=== PATIENT | female | born 1955 | race African-American/Black ===

== ENCOUNTER 2020-10-20 10:32 | Inpatient (IN) | payer OTHER ==
[2020-10-14 14:32] VITALS: BMI 45.7
[2020-10-20] MEDS ORDERED: CEFAZOLIN 3 GM in DEXTROSE 5%-WATER - 100 ML IVPB ONE (11:11)
[2020-10-20] MEDS ORDERED: SODIUM CHLORIDE 0.9% P/F 10 ML VIAL IJ ONE (15:46)
[2020-10-20] MEDS ORDERED: BUPIVACAINE HCL 50 ML ONE ×2 (15:46→16:24)
[2020-10-20] MEDS ORDERED: MIDAZOLAM HCL 2 MG/2 ML SINGLE DOSE VIAL ONE ×3 (15:46→16:55)
[2020-10-20] MEDS ORDERED: BUPIVACAINE LIPOSOME/PF (EXPAREL) 266 MG/20 ML VIAL ONE (15:46)
[2020-10-20] MEDS ORDERED: fentaNYL CITRATE 250 MCG/5 ML VIAL ONE (16:26)
[2020-10-20] MEDS ORDERED: PROPOFOL 20 ML ONE ×3 (16:38→16:47)
[2020-10-20] MEDS ORDERED: ONDANSETRON 4 MG/2 ML VIAL ONE (16:39)
[2020-10-20] MEDS ORDERED: KETOROLAC TROMETHAMINE 30 MG/1 ML VIAL ONE (16:39)
[2020-10-20] MEDS ORDERED: ceFAZolin SODIUM 1 GM VIAL ONE (16:39)
[2020-10-20] MEDS ORDERED: TRANEXAMIC ACID 1000 MG/10 ML VIAL ONE (16:40)
[2020-10-20] MEDS ORDERED: VANCOMYCIN 1,000 MG VIAL (RESTRICTED TO ID ONLY) ONE (16:52)
[2020-10-20] MEDS ORDERED: ONDANSETRON 4 MG/2 ML VIAL IVPUSH PRN ×2 (18:56→19:34)
[2020-10-20] MEDS ORDERED: MAGNESIUM HYDROX 2400MG/30ML ORAL SUSPENSION 30 ML CUP PO PRN (18:56)
[2020-10-20] MEDS ORDERED: MAG HYDROX/AL HYDROX/SIMETH 30 ML UNIT-DOSE CUP PO PRN (18:56)
[2020-10-20] MEDS ORDERED: LACTATED RINGERS SOLUTION 1,000 ML IV SCH (19:00)
[2020-10-20] MEDS ORDERED: PROMETHAZINE HCL 25 MG/1 ML VIAL IVPUSH PRN (19:34)
[2020-10-20] MEDS ORDERED: ACETAMINOPHEN 325 MG TABLET (FP) ONE (19:45)
[2020-10-20] MEDS: ACETAMINOPHEN 325 MG TABLET (FP) PO SCH (19:47)
[2020-10-20] MEDS ORDERED: ASPIRIN 81 MG CHEWABLE TABLETS ONE (21:09)
[2020-10-20] MEDS: SENNOSIDES/DOCUSATE COMBO (SENNA PLUS) TABLET (UD) PO SCH (21:26)
[2020-10-20] MEDS: CELECOXIB 200 MG CAPSULE PO SCH (21:26)
[2020-10-20] MEDS: ASPIRIN COATED 81 MG TABLET.EC PO SCH (21:30)
[2020-10-20] MEDS: oxyCODONE HCL 5 MG TABLET PO PRN (22:23)
[2020-10-21] MEDS: oxyCODONE HCL 5 MG TABLET PO PRN ×5 (01:21→17:58)
[2020-10-21] MEDS: ACETAMINOPHEN 325 MG TABLET (FP) PO SCH ×4 (01:23→19:56)
[2020-10-21] MEDS: CEFAZOLIN 2 GM/D5W 2 GM/50 ML ML IVPB SCH ×3 (01:29→12:48)
[2020-10-21 07:38] LABS: HEMATOCRIT 40.7 % (32.4-45.2); HEMOGLOBIN 13.5 GM/dl (10.7-15.3); MCH 28.6 pg (25.7-33.7); MCHC 33.2 g/dl (32.0-36.0); MEAN CELL VOLUME 86.2 fl (80-96); MEAN PLT VOLUME 7.6 fl (7.5-11.1); PLATELET COUNT 293 K/MM3 (134-434); RBC 4.72 M/mm3 (3.60-5.2); WHITE BLOOD COUNT 12.5 K/mm3 (4.0-10.8)
[2020-10-21 07:54] LABS: CALCIUM 8.6 mg/dl (8.5-10)
[2020-10-21] MEDS: HYDROCHLOROTHIAZIDE 25 MG TABLET (FP) PO SCH (09:29)
[2020-10-21] MEDS: amLODIPine BESYLATE 5 MG TABLET (FP) PO SCH (09:29)
[2020-10-21] MEDS: PANTOPRAZOLE 40 MG TABLET PO SCH (09:29)
[2020-10-21] MEDS: CELECOXIB 200 MG CAPSULE PO SCH ×2 (09:29→21:44)
[2020-10-21] MEDS: MONTELUKAST NA 10 MG TABLET PO SCH (09:29)
[2020-10-21] MEDS: ASPIRIN COATED 81 MG TABLET.EC PO SCH ×2 (09:29→21:44)
[2020-10-21] MEDS: SENNOSIDES/DOCUSATE COMBO (SENNA PLUS) TABLET (UD) PO SCH ×2 (09:30→21:44)
[2020-10-22] MEDS: oxyCODONE HCL 5 MG TABLET PO PRN ×4 (00:46→11:03)
[2020-10-22] MEDS: ACETAMINOPHEN 325 MG TABLET (FP) PO SCH ×5 (00:47→21:34)
[2020-10-22 07:28] LABS: HEMATOCRIT 37.4 % (32.4-45.2); HEMOGLOBIN 12.1 GM/dl (10.7-15.3); MCH 28.6 pg (25.7-33.7); MCHC 32.5 g/dl (32.0-36.0); MEAN CELL VOLUME 88.1 fl (80-96); PLATELET COUNT 247 K/MM3 (134-434); RBC 4.24 M/mm3 (3.60-5.2)
[2020-10-22] MEDS: PANTOPRAZOLE 40 MG TABLET PO SCH (10:50)
[2020-10-22] MEDS: HYDROCHLOROTHIAZIDE 25 MG TABLET (FP) PO SCH (10:50)
[2020-10-22] MEDS: ASPIRIN COATED 81 MG TABLET.EC PO SCH ×2 (10:50→21:33)
[2020-10-22] MEDS: CELECOXIB 200 MG CAPSULE PO SCH ×2 (10:50→21:33)
[2020-10-22] MEDS: amLODIPine BESYLATE 5 MG TABLET (FP) PO SCH (10:50)
[2020-10-22] MEDS: MONTELUKAST NA 10 MG TABLET PO SCH (10:50)
[2020-10-22] MEDS: SENNOSIDES/DOCUSATE COMBO (SENNA PLUS) TABLET (UD) PO SCH ×2 (10:51→21:33)
[2020-10-23] MEDS: oxyCODONE HCL 5 MG TABLET PO PRN ×4 (02:59→22:23)
[2020-10-23] MEDS: ACETAMINOPHEN 325 MG TABLET (FP) PO SCH ×3 (02:59→14:00)
[2020-10-23] MEDS: CELECOXIB 200 MG CAPSULE PO SCH ×2 (10:10→21:06)
[2020-10-23] MEDS: MONTELUKAST NA 10 MG TABLET PO SCH (10:10)
[2020-10-23] MEDS: ASPIRIN COATED 81 MG TABLET.EC PO SCH ×2 (10:10→21:06)
[2020-10-23] MEDS: amLODIPine BESYLATE 5 MG TABLET (FP) PO SCH (10:10)
[2020-10-23] MEDS: HYDROCHLOROTHIAZIDE 25 MG TABLET (FP) PO SCH (10:10)
[2020-10-23] MEDS: PANTOPRAZOLE 40 MG TABLET PO SCH (10:11)
[2020-10-23] MEDS: SENNOSIDES/DOCUSATE COMBO (SENNA PLUS) TABLET (UD) PO SCH ×2 (10:11→21:06)
[2020-10-24] MEDS: oxyCODONE HCL 5 MG TABLET PO PRN ×2 (02:27→11:13)
[2020-10-24] MEDS: SENNOSIDES/DOCUSATE COMBO (SENNA PLUS) TABLET (UD) PO SCH (11:12)
[2020-10-24] MEDS: CELECOXIB 200 MG CAPSULE PO SCH (11:13)
[2020-10-24] MEDS: ASPIRIN COATED 81 MG TABLET.EC PO SCH (11:13)
[2020-10-24] MEDS: amLODIPine BESYLATE 5 MG TABLET (FP) PO SCH (11:13)
[2020-10-24] MEDS: HYDROCHLOROTHIAZIDE 25 MG TABLET (FP) PO SCH (11:13)
[2020-10-24] MEDS: MONTELUKAST NA 10 MG TABLET PO SCH (11:13)
[2020-10-24] MEDS: PANTOPRAZOLE 40 MG TABLET PO SCH (11:18)
[2020-10-24 15:16] VITALS: BP 115/73; PULSE 72; TEMP 98
== END 2020-10-24 15:16 | disposition home or self-care (01) | DRG 302 ==
LOC: FM/S 10:32
PROVIDERS: ADMIT Orthopaedic Surgery Orthopaedic Surgery of the Spine; ATTEND Nurse Practitioner Acute Care
PROC: 0SRC0J9 Replacement of Right Knee Joint with Synthetic Substitute, Cemented, Open Approach (ICD-10-PCS; principal; 2020-10-20 16:59)
DX: M17.11 Unilateral primary osteoarthritis, right knee (principal); I10 Essential (primary) hypertension; J45.909 Unspecified asthma, uncomplicated; Z88.0 Allergy status to penicillin
CPT/HCPCS: 36415; 73560-TC-RT-FY; 80048; 85027; 88305-TC; 88311-TC; 94760; 97010-GP; 97116-GP; 97163-GP

== ENCOUNTER 2021-11-30 16:16 | Day surgery (SDC) | payer OTHER ==
[2021-11-29 10:34] VITALS: BMI 41.1
[~2021-11-30 16:16] MED LIST: BUPIVACAINE HCL 50 ML ONE; BUPIVACAINE HCL/PF 0.5% (5MG/ML) 10 ML VIAL ONE; BUPIVACAINE LIPOSOME/PF (EXPAREL) 266 MG/20 ML VIAL ONE; DEXAMETHASONE SOD PHOSPHATE 4 MG/1 ML VIAL ONE; KETOROLAC TROMETHAMINE 30 MG/1 ML VIAL ONE; LACTATED RINGERS SOLUTION 1,000 ML IV SCH; MAG HYDROX/AL HYDROX/SIMETH 30 ML UNIT-DOSE CUP PO PRN; MAGNESIUM HYDROX 2400MG/30ML ORAL SUSPENSION 30 ML CUP PO PRN; MIDAZOLAM HCL 2 MG/2 ML SINGLE DOSE VIAL ONE; MONTELUKAST NA 10 MG TABLET PO PRN; ONDANSETRON 4 MG/2 ML VIAL IVPUSH PRN; PROPOFOL 20 ML ONE; TRANEXAMIC ACID 1000 MG/10 ML VIAL ONE; VANCOMYCIN 1,000 MG VIAL (RESTRICTED TO ID ONLY) ONE; ceFAZolin SODIUM 1 GM VIAL ONE
[2021-11-30] MEDS ORDERED: ONDANSETRON 4 MG/2 ML VIAL IVPUSH PRN (16:29)
[2021-11-30] MEDS ORDERED: ACETAMINOPHEN 1000 MG/100 ML BAG IVPB ONE (16:29)
[2021-11-30] MEDS ORDERED: ACETAMINOPHEN INJECTION 100 ML IVPB ONE (16:36)
[2021-11-30] MEDS: KETOROLAC TROMETHAMINE 30 MG/1 ML VIAL IVPUSH SCH ×2 (18:30→21:57)
[2021-11-30] MEDS ORDERED: ceFAZolin SODIUM 1 GM VIAL ONE (20:50)
[2021-11-30] MEDS ORDERED: DEXTROSE 5%-WATER - 50 ML IVPB ONE (20:50)
[2021-11-30] MEDS ORDERED: CEFAZOLIN 2 GM in DEXTROSE 5%-WATER - 50 ML IVPB SCH (21:00)
[2021-11-30] MEDS: oxyCODONE HCL 5 MG TABLET PO PRN (21:10)
[2021-11-30] MEDS: oxyCODONE HCL 10 MG SUSTAINED ACTING TABLET PO SCH (21:11)
[2021-11-30] MEDS: SENNOSIDES/DOCUSATE COMBO (SENNA PLUS) TABLET (UD) PO SCH (21:11)
[2021-11-30] MEDS: CEFAZOLIN 2 GM in DEXTROSE 5%-WATER - 50 ML IVPB SCH (21:12)
[2021-11-30] MEDS: ASPIRIN COATED 81 MG TABLET.EC PO SCH (21:57)
[2021-11-30] MEDS ORDERED: ASPIRIN 325 MG TABLET PO SCH (22:00)
[2021-11-30] MEDS ORDERED: SENNOSIDES/DOCUSATE COMBO (SENNA PLUS) TABLET (UD) PO SCH (22:00)
[2021-12-01] MEDS: oxyCODONE HCL 5 MG TABLET PO PRN ×5 (00:12→17:47)
[2021-12-01] MEDS: ACETAMINOPHEN 500 MG TABLET (FP) PO SCH ×5 (00:12→22:11)
[2021-12-01] MEDS: CEFAZOLIN 2 GM in DEXTROSE 5%-WATER - 50 ML IVPB SCH ×2 (03:39→08:39)
[2021-12-01] MEDS ORDERED: ceFAZolin SODIUM 1 GM VIAL ONE ×2 (04:21→08:26)
[2021-12-01] MEDS ORDERED: DEXTROSE 5%-WATER - 50 ML IVPB ONE ×2 (04:21→08:26)
[2021-12-01] MEDS: LACTATED RINGERS SOLUTION 1,000 ML IV SCH ×2 (06:02→17:49)
[2021-12-01 08:19] LABS: HEMATOCRIT 37.5 % (32.4-45.2); HEMOGLOBIN 13.2 G/dL (10.7-15.3); MCH 29.6 pg (25.7-33.7); MCHC 35.1 g/dl (32.0-36.0); MEAN CELL VOLUME 84.5 fl (80-96); MEAN PLT VOLUME 7.7 fl (7.5-11.1); PLATELET COUNT 268.3 10^3/uL (134-434); RBC 4.44 10^6/uL (3.60-5.2); RDW 14.7 % (11.6-15.6); WHITE BLOOD COUNT 13.6 10^3/uL (4.0-10.8)
[2021-12-01 08:26] LABS: CALCIUM 8.3 mg/dl (8.5-10); CREATININE 0.9 mg/dl (0.55-1.3)
[2021-12-01] MEDS: PANTOPRAZOLE 40 MG TABLET PO SCH (09:14)
[2021-12-01] MEDS: ASPIRIN COATED 81 MG TABLET.EC PO SCH ×2 (09:15→22:10)
[2021-12-01] MEDS: oxyCODONE HCL 10 MG SUSTAINED ACTING TABLET PO SCH ×2 (09:15→22:10)
[2021-12-01] MEDS: SENNOSIDES/DOCUSATE COMBO (SENNA PLUS) TABLET (UD) PO SCH ×2 (09:15→22:12)
[2021-12-01] MEDS: CELECOXIB 200 MG CAPSULE PO SCH (09:15)
[2021-12-01] MEDS: amLODIPine BESYLATE 5 MG TABLET (FP) PO SCH (09:15)
[2021-12-01] MEDS: HYDROCHLOROTHIAZIDE 25 MG TABLET (FP) PO SCH (09:20)
[2021-12-01] MEDS ORDERED: amLODIPine BESYLATE 5 MG TABLET (FP) PO SCH (10:00)
[2021-12-01] MEDS ORDERED: HYDROCHLOROTHIAZIDE 25 MG TABLET (FP) PO SCH (10:00)
[2021-12-01] MEDS ORDERED: CELECOXIB 200 MG CAPSULE PO SCH (10:00)
[2021-12-01] MEDS ORDERED: PANTOPRAZOLE 40 MG TABLET PO SCH (10:00)
[2021-12-02] MEDS: oxyCODONE HCL 5 MG TABLET PO PRN ×3 (03:07→15:39)
[2021-12-02] MEDS: ACETAMINOPHEN 500 MG TABLET (FP) PO SCH ×2 (06:30→10:51)
[2021-12-02 09:26] LABS: HEMOGLOBIN 12.2 GM/dL (10.7-15.3); MCH 28.1 pg (25.7-33.7); MCHC 33.1 g/dl (32.0-36.0); MEAN CELL VOLUME 85.1 fl (80-96); MEAN PLT VOLUME 7.8 fl (7.5-11.1); PLATELET COUNT 258 10^3/uL (134-434); RBC 4.35 M/mm3 (3.60-5.2); RDW 14.6 % (11.6-15.6); WHITE BLOOD COUNT 8.9 K/mm3 (4.0-10.0)
[2021-12-02] MEDS: amLODIPine BESYLATE 5 MG TABLET (FP) PO SCH (09:31)
[2021-12-02] MEDS: ASPIRIN COATED 81 MG TABLET.EC PO SCH (09:31)
[2021-12-02] MEDS: PANTOPRAZOLE 40 MG TABLET PO SCH (09:31)
[2021-12-02] MEDS: oxyCODONE HCL 10 MG SUSTAINED ACTING TABLET PO SCH (09:31)
[2021-12-02] MEDS: SENNOSIDES/DOCUSATE COMBO (SENNA PLUS) TABLET (UD) PO SCH (09:31)
[2021-12-02] MEDS: HYDROCHLOROTHIAZIDE 25 MG TABLET (FP) PO SCH (09:31)
[2021-12-02] MEDS: CELECOXIB 200 MG CAPSULE PO SCH (09:31)
[2021-12-02 13:54] VITALS: BP 131/77; PULSE 84; RESP 20; TEMP 98.4
== END 2021-12-02 16:20 | disposition home health service (06) ==
LOC: FASUSAT 16:16 → FM/S 17:54 → FASUSAT 12-02 04:20
PROVIDERS: ATTEND Orthopaedic Surgery Orthopaedic Surgery of the Spine
PROC: 0SRD0J9 Replacement of Left Knee Joint with Synthetic Substitute, Cemented, Open Approach (ICD-10-PCS; principal; 2021-11-30 14:00)
DX: M17.12 Unilateral primary osteoarthritis, left knee (principal)
CPT/HCPCS: 27447; C1776; 36415; 73560-TC-LT-FY; 80048; 85025; 85027; 88305-TC; 88311-TC; 94760; 97010-GP; 97116-GP; 97162-GP

== ENCOUNTER 2021-12-27 17:32 | Inpatient (IN) | payer OTHER ==
[2021-12-27] MEDS ORDERED: oxyCODONE HCL 5 MG TABLET PO ONE (17:57)
[2021-12-27] MEDS ORDERED: ACETAMINOPHEN 1000 MG/100 ML BAG IVPB ONE (17:57)
[2021-12-27] MEDS ORDERED: VANCOMYCIN 2,000 MG in DEXTROSE 5%-WATER - 500 ML IVPB ONE (18:00)
[2021-12-27] MEDS ORDERED: SODIUM CHLORIDE 0.9% 500 ML INFUS.BAG IV ONE (18:01)
[2021-12-27] MEDS ORDERED: VANCOMYCIN 1,000 MG VIAL (RESTRICTED TO ID ONLY) ONE (18:07)
[2021-12-27] MEDS ORDERED: ACETAMINOPHEN INJECTION 100 ML IVPB ONE (18:08)
[2021-12-27] MEDS ORDERED: oxyCODONE HCL 5 MG TABLET ONE (18:24)
[2021-12-27 18:26] LABS: HEMATOCRIT 39.2 % (32.4-45.2); HEMOGLOBIN 13.6 G/dL (10.7-15.3); MCH 29.5 pg (25.7-33.7); MCHC 34.6 g/dl (32.0-36.0); MEAN CELL VOLUME 85.3 fl (80-96); MEAN PLT VOLUME 6.8 fl (7.5-11.1); PLATELET COUNT 344.1 10^3/uL (134-434); RDW 15.6 % (11.6-15.6); WHITE BLOOD COUNT 7.3 10^3/uL (4.0-10.8)
[2021-12-27 18:36] LABS: INR 1.09 (0.83-1.09); PROTHROMBIN TIME (PATIENT) 12.5 SEC (9.7-13.0)
[2021-12-27 18:38] LABS: ACTIVATED PTT 31.8 SECONDS (25.2-36.5)
[2021-12-27 18:41] LABS: PLATELET ESTIMATE ADEQUATE
[2021-12-27 18:42] LABS: ALBUMIN 3.8 g/dl (3.4-5.0); BILIRUBIN,TOTAL 0.8 mg/dl (0.2-1); CALCIUM 9.2 mg/dl (8.5-10); CREATININE 0.9 mg/dl (0.55-1.3); TOT PROT 7.9 g/dl (6.4-8.2)
[2021-12-27] MEDS ORDERED: POTASSIUM CHLORIDE TABS 20 MEQ TABLET.ER (FP) PO ONE ×2 (18:46→18:48)
[2021-12-27 23:13] VITALS: BMI 43.9
[2021-12-27] MEDS ORDERED: morphine SULFATE 4 MG/ML VIAL IVPUSH PRN (23:45)
[2021-12-27] MEDS ORDERED: DEXTROSE 5%-0.45% SALINE 1,000 ML IV SCH (23:45)
[2021-12-28] MEDS: ACETAMINOPHEN 1000 MG/100 ML BAG IVPB PRN ×3 (00:20→22:50)
[2021-12-28 08:09] LABS: CALCIUM 8.5 mg/dl (8.5-10); CREATININE 0.6 mg/dl (0.55-1.3)
[2021-12-28 09:09] LABS: HEMATOCRIT 39.4 % (32.4-45.2); HEMOGLOBIN 13.2 GM/dL (10.7-15.3); MCH 28.4 pg (25.7-33.7); MCHC 33.4 g/dl (32.0-36.0); MEAN CELL VOLUME 85.1 fl (80-96); MEAN PLT VOLUME 7.1 fl (7.5-11.1); PLATELET COUNT 242 10^3/uL (134-434); RBC 4.64 M/mm3 (3.60-5.2); RDW 15.4 % (11.6-15.6); WHITE BLOOD COUNT 4.6 K/mm3 (4.0-10.0)
[2021-12-28] MEDS ORDERED: PROPOFOL 20 ML ONE (11:12)
[2021-12-28] MEDS ORDERED: SUCCINYLCHOLINE CHLORIDE 200 MG/10 ML SYRINGE ONE (11:12)
[2021-12-28] MEDS ORDERED: BUPIVACAINE HCL 50 ML ONE (11:13)
[2021-12-28] MEDS ORDERED: MIDAZOLAM HCL 2 MG/2 ML SINGLE DOSE VIAL ONE (11:39)
[2021-12-28] MEDS ORDERED: ONDANSETRON 4 MG/2 ML VIAL ONE (12:06)
[2021-12-28] MEDS ORDERED: DEXAMETHASONE SOD PHOSPHATE 4 MG/1 ML VIAL ONE (12:06)
[2021-12-28] MEDS ORDERED: KETOROLAC TROMETHAMINE 30 MG/1 ML VIAL ONE (12:06)
[2021-12-28] MEDS ORDERED: ceFAZolin SODIUM 1 GM VIAL ONE (13:29)
[2021-12-28] MEDS ORDERED: VANCOMYCIN/WATER 1250 MG 1,250 MG/250 ML BAG IVPB SCH ×2 (13:30→16:45)
[2021-12-28] MEDS ORDERED: GLYCOPYRROLATE 0.2 MG/1 ML VIAL ONE (13:34)
[2021-12-28] MEDS ORDERED: NEOSTIGMINE METHYLSULFATE 0.5 MG/1 ML - 10 ML MDV ONE (13:34)
[2021-12-28] MEDS ORDERED: MAG HYDROX/AL HYDROX/SIMETH 30 ML UNIT-DOSE CUP PO PRN (13:59)
[2021-12-28] MEDS ORDERED: ONDANSETRON 4 MG/2 ML VIAL IVPUSH PRN ×2 (13:59→14:02)
[2021-12-28] MEDS ORDERED: MAGNESIUM HYDROX 2400MG/30ML ORAL SUSPENSION 30 ML CUP PO PRN (13:59)
[2021-12-28] MEDS ORDERED: LACTATED RINGERS SOLUTION 1,000 ML IV SCH (14:00)
[2021-12-28] MEDS ORDERED: oxyCODONE HCL 5 MG TABLET PO PRN (14:02)
[2021-12-28] MEDS ORDERED: PROMETHAZINE HCL 25 MG/1 ML VIAL IVPUSH PRN (14:02)
[2021-12-28] MEDS ORDERED: FENTANYL CITRATE/PF 50 MCG/ML VIAL ONE ×2 (14:21→14:34)
[2021-12-28] MEDS ORDERED: ACETAMINOPHEN INJECTION 100 ML IVPB ONE (14:23)
[2021-12-28] MEDS: oxyCODONE HCL 5 MG TABLET PO PRN ×2 (16:03→20:07)
[2021-12-28] MEDS: CEFAZOLIN SODIUM 2 GM in DEXTROSE 5%-WATER 100 ML IVPB SCH (18:12)
[2021-12-28] MEDS: ASPIRIN COATED 81 MG TABLET.EC PO SCH (21:10)
[2021-12-28] MEDS: CELECOXIB 100 MG CAPSULE PO SCH (21:10)
[2021-12-28] MEDS: SENNOSIDES/DOCUSATE COMBO (SENNA PLUS) TABLET (UD) PO SCH (21:10)
[2021-12-28] MEDS ORDERED: VANCOMYCIN 1 GM in D5W (PRE-DOCKED) 1,000 MG/250 ML IVPB SCH (22:00)
[2021-12-28] MEDS ORDERED: ASPIRIN 325 MG TABLET PO SCH (22:00)
[2021-12-29] MEDS: VANCOMYCIN/WATER 1250 MG 1,250 MG/250 ML BAG IVPB SCH ×2 (00:28→13:46)
[2021-12-29] MEDS ORDERED: VANCOMYCIN 1 GM in D5W (PRE-DOCKED) 1,000 MG/250 ML IVPB SCH (01:00)
[2021-12-29] MEDS: CEFAZOLIN SODIUM 2 GM in DEXTROSE 5%-WATER 100 ML IVPB SCH ×2 (02:47→09:16)
[2021-12-29] MEDS: oxyCODONE HCL 5 MG TABLET PO PRN ×5 (03:11→22:13)
[2021-12-29 08:30] LABS: ALBUMIN 3.1 g/dl (3.4-5.0); BILIRUBIN,TOTAL 0.7 mg/dl (0.2-1); CALCIUM 8.4 mg/dl (8.5-10); CREATININE 0.6 mg/dl (0.55-1.3); TOT PROT 6.4 g/dl (6.4-8.2)
[2021-12-29] MEDS: PANTOPRAZOLE 40 MG TABLET PO SCH (09:16)
[2021-12-29] MEDS: CELECOXIB 100 MG CAPSULE PO SCH ×2 (09:16→21:29)
[2021-12-29] MEDS: HYDROCHLOROTHIAZIDE 25 MG TABLET (FP) PO SCH (09:16)
[2021-12-29] MEDS: SENNOSIDES/DOCUSATE COMBO (SENNA PLUS) TABLET (UD) PO SCH ×2 (09:16→21:30)
[2021-12-29] MEDS: ASPIRIN COATED 81 MG TABLET.EC PO SCH ×2 (09:16→21:28)
[2021-12-29] MEDS: amLODIPine BESYLATE 5 MG TABLET (FP) PO SCH (09:16)
[2021-12-29] MEDS ORDERED: amLODIPine BESYLATE 5 MG TABLET (FP) PO SCH (10:00)
[2021-12-29 11:07] LABS: BASO % 0.6 % (0-2.0); EOS % 0.1 % (0-4.5); HEMATOCRIT 32.9 % (32.4-45.2); HEMOGLOBIN 11.1 GM/dL (10.7-15.3); LYMPH % 24.6 % (8-40); MCH 28.3 pg (25.7-33.7); MCHC 33.6 g/dl (32.0-36.0); MEAN PLT VOLUME 7.2 fl (7.5-11.1); MONO % 8.5 % (3.8-10.2); NEUT % 66.2 % (42.8-82.8); PLATELET COUNT 281 10^3/uL (134-434); RBC 3.92 M/mm3 (3.60-5.2); RDW 15.5 % (11.6-15.6); WHITE BLOOD COUNT 8.4 K/mm3 (4.0-10.0)
[2021-12-29] MEDS: CEFTRIAXONE 2 GM in DEXTROSE 5%-WATER 100 ML IVPB SCH (17:07)
[2021-12-30] MEDS ORDERED: REFRIGERATED ANITBIOTICS ONE (00:44)
[2021-12-30] MEDS: VANCOMYCIN/WATER 1250 MG 1,250 MG/250 ML BAG IVPB SCH ×2 (00:52→13:33)
[2021-12-30] MEDS: oxyCODONE HCL 5 MG TABLET PO PRN ×4 (01:23→22:25)
[2021-12-30 08:12] LABS: BILIRUBIN,TOTAL 0.7 mg/dl (0.2-1); CALCIUM 8.1 mg/dl (8.5-10); CREATININE 0.5 mg/dl (0.55-1.3); TOT PROT 6.3 g/dl (6.4-8.2)
[2021-12-30] MEDS: CEFTRIAXONE 2 GM in DEXTROSE 5%-WATER 100 ML IVPB SCH (09:47)
[2021-12-30] MEDS: amLODIPine BESYLATE 5 MG TABLET (FP) PO SCH (09:48)
[2021-12-30] MEDS: PANTOPRAZOLE 40 MG TABLET PO SCH (09:48)
[2021-12-30] MEDS: HYDROCHLOROTHIAZIDE 25 MG TABLET (FP) PO SCH (09:48)
[2021-12-30] MEDS: SENNOSIDES/DOCUSATE COMBO (SENNA PLUS) TABLET (UD) PO SCH ×2 (09:48→21:57)
[2021-12-30] MEDS: ASPIRIN COATED 81 MG TABLET.EC PO SCH ×2 (09:48→21:58)
[2021-12-30] MEDS: CELECOXIB 100 MG CAPSULE PO SCH ×2 (10:40→21:58)
[2021-12-30 11:13] LABS: BASO % 0.7 % (0-2.0); EOS % 6.3 % (0-4.5); HEMATOCRIT 33.2 % (32.4-45.2); HEMOGLOBIN 11.2 GM/dL (10.7-15.3); LYMPH % 39.9 % (8-40); MCH 28.7 pg (25.7-33.7); MCHC 33.6 g/dl (32.0-36.0); MEAN CELL VOLUME 85.4 fl (80-96); MEAN PLT VOLUME 6.9 fl (7.5-11.1); MONO % 7.2 % (3.8-10.2); NEUT % 45.9 % (42.8-82.8); PLATELET COUNT 251 10^3/uL (134-434); RBC 3.89 M/mm3 (3.60-5.2); RDW 15.8 % (11.6-15.6); WHITE BLOOD COUNT 7.4 K/mm3 (4.0-10.0)
[2021-12-30] MEDS ORDERED: POTASSIUM CHLORIDE TABS 20 MEQ TABLET.ER (FP) PO ONE (15:08)
[2021-12-30] MEDS: CEFEPIME 2 GM in DEXTROSE 5%-WATER 100 ML IVPB SCH (17:25)
[2021-12-31] MEDS: CEFEPIME 2 GM in DEXTROSE 5%-WATER 100 ML IVPB SCH ×2 (01:00→09:42)
[2021-12-31] MEDS: VANCOMYCIN/WATER 1250 MG 1,250 MG/250 ML BAG IVPB SCH ×2 (01:33→12:51)
[2021-12-31] MEDS: oxyCODONE HCL 5 MG TABLET PO PRN ×3 (05:21→16:51)
[2021-12-31 09:04] LABS: BILIRUBIN,TOTAL 0.8 mg/dl (0.2-1); CALCIUM 8.4 mg/dl (8.5-10); CREATININE 0.6 mg/dl (0.55-1.3); TOT PROT 6.3 g/dl (6.4-8.2)
[2021-12-31] MEDS: CELECOXIB 100 MG CAPSULE PO SCH ×2 (09:41→21:43)
[2021-12-31] MEDS: amLODIPine BESYLATE 5 MG TABLET (FP) PO SCH (09:42)
[2021-12-31] MEDS: HYDROCHLOROTHIAZIDE 25 MG TABLET (FP) PO SCH (09:42)
[2021-12-31] MEDS: ASPIRIN COATED 81 MG TABLET.EC PO SCH ×2 (09:42→21:44)
[2021-12-31] MEDS: SENNOSIDES/DOCUSATE COMBO (SENNA PLUS) TABLET (UD) PO SCH ×2 (09:57→21:43)
[2021-12-31] MEDS: PANTOPRAZOLE 40 MG TABLET PO SCH (09:57)
[2021-12-31] MEDS ORDERED: POTASSIUM CHLORIDE TABS 20 MEQ TABLET.ER (FP) PO ONE (09:57)
[2021-12-31] MEDS ORDERED: MAGNESIUM SULF 50% (8.12 MEQ/2 ML-1 GM VIAL) IVPB ONE (11:55)
[2021-12-31 11:57] LABS: HEMATOCRIT 34.4 % (32.4-45.2); HEMOGLOBIN 11.4 GM/dL (10.7-15.3); MCH 28.5 pg (25.7-33.7); MEAN CELL VOLUME 86.2 fl (80-96); MEAN PLT VOLUME 7.1 fl (7.5-11.1); PLATELET COUNT 246 10^3/uL (134-434); RBC 3.99 M/mm3 (3.60-5.2); RDW 15.6 % (11.6-15.6); WHITE BLOOD COUNT 6.9 K/mm3 (4.0-10.0)
[2021-12-31 13:48] LABS: ANISOCYTOSIS 0; HELMET CELLS 0; HOWELL-JOLLY BODIES 0; MACROCYTOSIS 0; OVALOCYTE 0; ROULEAU 0; SICKELED CELLS 0; TARGET CELLS 0; TEAR DROP CELLS 0; TOXIC GRANULATION 0
[2021-12-31] MEDS ORDERED: CEFTRIAXONE 2 GM-D5W BAG 2 GM/50 ML BAG IVPB SCH (17:00)
[2022-01-01] MEDS: oxyCODONE HCL 5 MG TABLET PO PRN ×2 (01:53→09:26)
[2022-01-01 09:09] LABS: HEMATOCRIT 33.2 % (32.4-45.2); HEMOGLOBIN 11.2 G/dL (10.7-15.3); MCH 29.3 pg (25.7-33.7); MCHC 33.8 g/dl (32.0-36.0); MEAN CELL VOLUME 86.7 fl (80-96); MEAN PLT VOLUME 7.2 fl (7.5-11.1); PLATELET COUNT 206.5 10^3/uL (134-434); RBC 3.83 10^6/uL (3.60-5.2); RDW 15.7 % (11.6-15.6); WHITE BLOOD COUNT 6.4 10^3/uL (4.0-10.8)
[2022-01-01] MEDS: SENNOSIDES/DOCUSATE COMBO (SENNA PLUS) TABLET (UD) PO SCH ×2 (09:11→21:30)
[2022-01-01 09:15] LABS: CALCIUM 8.3 mg/dl (8.5-10); CREATININE 0.5 mg/dl (0.55-1.3); MAGNESIUM 1.7 mg/dL (1.8-2.4)
[2022-01-01] MEDS: HYDROCHLOROTHIAZIDE 25 MG TABLET (FP) PO SCH (09:25)
[2022-01-01] MEDS: ASPIRIN COATED 81 MG TABLET.EC PO SCH ×2 (09:25→21:29)
[2022-01-01] MEDS: amLODIPine BESYLATE 5 MG TABLET (FP) PO SCH (09:25)
[2022-01-01] MEDS: CELECOXIB 100 MG CAPSULE PO SCH ×2 (09:25→21:30)
[2022-01-01] MEDS: POTASSIUM CHLORIDE TABS 20 MEQ TABLET.ER (FP) PO SCH (09:25)
[2022-01-01] MEDS: PANTOPRAZOLE 40 MG TABLET PO SCH (09:26)
[2022-01-01] MEDS: CEFTRIAXONE 2 GM in DEXTROSE 5%-WATER 100 ML IVPB SCH (10:21)
[2022-01-02] MEDS: oxyCODONE HCL 5 MG TABLET PO PRN ×2 (03:00→12:23)
[2022-01-02 08:30] LABS: ALBUMIN 2.8 g/dl (3.4-5.0); BILIRUBIN,TOTAL 0.8 mg/dl (0.2-1); CALCIUM 8.3 mg/dl (8.5-10); CREATININE 0.5 mg/dl (0.55-1.3); TOT PROT 6.2 g/dl (6.4-8.2)
[2022-01-02 09:34] VITALS: BP 133/76; PULSE 82; RESP 20; TEMP 98.6
[2022-01-02] MEDS: POTASSIUM CHLORIDE TABS 20 MEQ TABLET.ER (FP) PO SCH (09:50)
[2022-01-02] MEDS: CEFTRIAXONE 2 GM in DEXTROSE 5%-WATER 100 ML IVPB SCH (09:50)
[2022-01-02] MEDS: amLODIPine BESYLATE 5 MG TABLET (FP) PO SCH (09:51)
[2022-01-02] MEDS: ASPIRIN COATED 81 MG TABLET.EC PO SCH (09:51)
[2022-01-02] MEDS: CELECOXIB 100 MG CAPSULE PO SCH (10:11)
[2022-01-02] MEDS: PANTOPRAZOLE 40 MG TABLET PO SCH (10:11)
[2022-01-02] MEDS: SENNOSIDES/DOCUSATE COMBO (SENNA PLUS) TABLET (UD) PO SCH (10:11)
[2022-01-02 10:41] LABS: EOS % 7.3 % (0-4.5); HEMATOCRIT 32.9 % (32.4-45.2); LYMPH % 37.1 % (8-40); MCHC 33.6 g/dl (32.0-36.0); MEAN CELL VOLUME 86.3 fl (80-96); MEAN PLT VOLUME 7.1 fl (7.5-11.1); MONO % 9.3 % (3.8-10.2); NEUT % 45.3 % (42.8-82.8); PLATELET COUNT 215 10^3/uL (134-434); RBC 3.81 M/mm3 (3.60-5.2); RDW 15.6 % (11.6-15.6); WHITE BLOOD COUNT 5.7 K/mm3 (4.0-10.0)
== END 2022-01-02 14:30 | DRG 711 ==
LOC: FER 17:32 → FM/S 20:53
PROVIDERS: ADMIT Internal Medicine
PROC: 0JBP0ZZ Excision of Left Lower Leg Subcutaneous Tissue and Fascia, Open Approach (ICD-10-PCS; 2021-12-28)
PROC: 0SPD0JZ Removal of Synthetic Substitute from Left Knee Joint, Open Approach (ICD-10-PCS; 2021-12-28)
PROC: 0SRD0JZ Replacement of Left Knee Joint with Synthetic Substitute, Open Approach (ICD-10-PCS; 2021-12-28)
PROC: 0SBD0ZZ Excision of Left Knee Joint, Open Approach (ICD-10-PCS; 2021-12-28)
PROC: 2W3MX1Z Immobilization of Left Lower Extremity using Splint (ICD-10-PCS; 2021-12-28)
PROC: 02HV33Z Insertion of Infusion Device into Superior Vena Cava, Percutaneous Approach (ICD-10-PCS; principal; 2021-12-30)
PROC: B518ZZA Fluoroscopy of Superior Vena Cava, Guidance (ICD-10-PCS; 2021-12-30)
DX: T81.42XA Infection following a procedure, deep incisional surgical site, initial encounter (principal); K21.9 Gastro-esophageal reflux disease without esophagitis; G89.29 Other chronic pain; E78.5 Hyperlipidemia, unspecified; I10 Essential (primary) hypertension; E66.01 Morbid (severe) obesity due to excess calories; B96.89 Other specified bacterial agents as the cause of diseases classified elsewhere; Z68.41 Body mass index [BMI] 40.0-44.9, adult; Z96.652 Presence of left artificial knee joint; Y83.8 Other surgical procedures as the cause of abnormal reaction of the patient, or of later complication, without mention of misadventure at the time of the procedure
CPT/HCPCS: 0241U-QW; 36415; 36569; 71045-TC-FY; 73560-TC-LT-FY; 77001-TC-FY; 80048; 80053; 80061; 83036; 83605; 83735; 85025; 85027; 85610; 85730; 86850; 86900; 86901; 87040; 87070; 87075; 87102; 87116; 87186; 87205; 87206; 87210; 88300-TC; 93005; 94760; 97116-GP; 97162-GP; 99285-25; C1751; C9803-CS; G0480; U0003; U0005